=== PATIENT | male | born 1955 | race Caucasian/White ===

== ENCOUNTER 2023-01-19 12:56 | Outpatient (CLI) | payer MEDICARE, BC | END 2023-01-19 12:57 | disposition home or self-care (01) | LOC: LABBT 12:56 | PROVIDERS: ATTEND Orthopaedic Surgery | DX: Z01.818 Encounter for other preprocedural examination (principal); M17.12 Unilateral primary osteoarthritis, left knee; J98.4 Other disorders of lung; R59.0 Localized enlarged lymph nodes; Q25.46 Tortuous aortic arch | CPT/HCPCS: 71046; 80048; 81001; 85025; 85610; 86850; 86900; 86901; 87081; 93005; 93010 ==

== ENCOUNTER 2023-01-24 06:49 | Observation (INO) | payer MEDICARE, BC ==
[2023-01-19 13:10] VITALS: BMI 31.5
[2023-01-19 15:10] LABS: #Basophils 0.1 10x3/uL (0.0-0.2); #Eosinphils 0.2 10x3/uL (0.0-0.5); #Monocytes 0.8 10x3/uL (0.0-1.1); #Neutrophils 5.6 10x3/uL (1.5-8.4); %Lymphocytes 26.4 % (18.0-47.0); %Monocytes 8.4 % (0.0-10.0); %Neutrophils 61.8 % (40.0-75.0); Hemoglobin 17.2 g/dL (13.5-17.5); Mean Corpuscular HGB CONC 33.7 g/dL (32.0-36.0); Mean Corpuscular Hemoglobin 31.8 pg (27.0-33.0); Mean Corpuscular Volume 94.3 fl (81.2-95.1); Mean Platelet Volume 10.6 fl (7.4-10.4); Platelet Count 234 10x3/uL (150-450); RBC Distribution Width 12.8 % (11.5-14.5); Red Blood Cell (RBC) Count 5.41 10x6/uL (4.32-5.72); White Blood Cell (WBC) Count 9.1 10x3/uL (3.5-10.5)
[2023-01-19 15:11] LABS: Anion Gap 14 mmol/L (10-20); BUN (Urea Nitrogen) 12 mg/dL (8.4-25.7); Bilirubin Neg (Negative); Blood, Urine 10 (Negative); Calc. Creatinine Clearance 0 mL/min (70-130); Calcium 8.9 mg/dL (7.8-10.44); Carbon Dioxide 26 mmol/L (23-31); Chloride 105 mmol/L (98-107); Clarity Clear (Clear); Estimated GFR 102; Glucose 105 mg/dL (80-115); Glucose, Urine (Dipstick) Normal (Negative); Ketone, Urine Negative (Negative); Leukocyte Negative (Negative); Nitrite Negative (Negative); Potassium 4.4 mmol/L (3.5-5.1); Protein, Urine (Dipstick) 15 mg/dl (Neg-Trace); Sodium 141 mmol/L (136-145); Specific Gravity, Urine 1.005 (1.005-1.030); Urobilinogen Normal mg/dL (Less than 2); pH, Urine 6.5 (5.0-9.0)
[2023-01-19 15:15] LABS: Prothrombin Time 10.8 sec (9.5-12.1)
[2023-01-19 15:32] LABS: Bacteria/HPF None Seen HPF (None Seen); RBC/HPF None Seen HPF (0-3); Squamous Epithelial None Seen HPF (0-3); WBC/HPF None Seen HPF (0-3)
[2023-01-24] MEDS ORDERED: Midazolam HCl 2 mg/2 ml Vial ONE (07:23)
[2023-01-24] MEDS ORDERED: Bupivacaine PF 0.5% 30 ML VIAL ONE ×2 (07:23→09:20)
[2023-01-24] MEDS ORDERED: fentaNYL 50 mcg/mL 1 mL Vial ONE ×3 (07:23→11:58)
[2023-01-24] MEDS ORDERED: Tranexamic Acid 1,000 MG/10 ML VIAL ONE ×2 (08:22→11:58)
[2023-01-24] MEDS ORDERED: Vancomycin (BATCH) 1.5 GM/300 ML BAG ONE (08:22)
[2023-01-24] MEDS ORDERED: Sodium Chloride 0.9% 100 ML ONE ×2 (08:22→09:30)
[2023-01-24] MEDS ORDERED: Bupivacaine HCl 0.5%/Epinephrine 1:200,000/PF 30 ml Vial ONE (08:50)
[2023-01-24] MEDS ORDERED: fentaNYL 50 mcg/mL 1 mL Vial SLOW IVP PRN (09:02)
[2023-01-24] MEDS ORDERED: Promethazine HCl 25 MG/ML VIAL IM PRN ×3 (09:15→10:23)
[2023-01-24] MEDS ORDERED: Ondansetron PF 4 MG/2 ML Vial IVP PRN ×2 (09:15→10:06)
[2023-01-24] MEDS ORDERED: Zolpidem Tartrate 5 MG TAB PO PRN ×2 (09:15→10:06)
[2023-01-24] MEDS ORDERED: traMADol HCl 50 MG TAB PO PRN ×2 (09:15)
[2023-01-24] MEDS ORDERED: HYDROcodone/Acetaminophen 10/325 mg Tablet PO PRN ×2 (09:15)
[2023-01-24] MEDS ORDERED: Ropivacaine 0.2% 550 ML 550 ML NERVE BLCK SCH (09:15)
[2023-01-24] MEDS ORDERED: CEFAZOLIN 2 GM VIAL ONE (09:29)
[2023-01-24] MEDS ORDERED: fentaNYL PF 100 MCG/2 ML SYRINGE ONE (09:29)
[2023-01-24] MEDS ORDERED: PROPOFOL 20 ML ONE (09:29)
[2023-01-24] MEDS ORDERED: Lidocaine 1% PF 5 ML VIAL ONE ×2 (09:30→09:56)
[2023-01-24] MEDS ORDERED: Ketorolac Tromethamine 30 MG/ML VIAL ONE ×2 (09:56→10:23)
[2023-01-24] MEDS ORDERED: PROPOFOL 200 MG/20 ML VIAL ONE (09:56)
[2023-01-24] MEDS ORDERED: Dexamethasone 20 MG/5 ML VIAL ONE (09:56)
[2023-01-24] MEDS ORDERED: ePHEDrine Sulfate 50 MG/10 ML VIAL ONE ×2 (09:56→11:16)
[2023-01-24] MEDS ORDERED: PHENYLEPHRINE-NS 100 MCG/ML 10 ML SYRINGE ONE ×2 (09:56→10:04)
[2023-01-24] MEDS ORDERED: Ondansetron PF 4 MG/2 ML Vial ONE ×2 (09:56→10:23)
[2023-01-24] MEDS ORDERED: Acetaminophen 325 MG TAB PO PRN (10:06)
[2023-01-24] MEDS ORDERED: diphenhydrAMINE 25 MG CAP PO PRN (10:06)
[2023-01-24] MEDS ORDERED: Tranexamic Acid 1,000 MG in Sodium Chloride 0.9% 100 ML IVPB SCH (10:15)
[2023-01-24] MEDS ORDERED: Dexamethasone 4 mg/ml Vial ONE (10:23)
[2023-01-24] MEDS ORDERED: Meperidine HCl/PF 25 MG/ML VIAL SLOW IVP PRN (10:23)
[2023-01-24] MEDS ORDERED: Ondansetron HCl/PF 4 MG/2 ML Vial IVP PRN (10:23)
[2023-01-24] MEDS ORDERED: HYDROmorphone 2 MG/ML VIAL SLOW IVP PRN (10:23)
[2023-01-24] MEDS: Ketorolac Tromethamine 30 MG/ML VIAL IVP SCH ×2 (12:17→17:25)
[2023-01-24] MEDS: CEFAZOLIN 2 GM in Sodium Chloride 0.9% 100 ML IVPB SCH ×2 (14:34→22:59)
[2023-01-24] MEDS: Sodium Chloride 0.9% 1,000 ML IV SCH ×2 (14:35→21:06)
[2023-01-24] MEDS ORDERED: Vancomycin 1.5 GM in Sodium Chloride 0.9% 250 ML 300 ML IVPB SCH (20:00)
[2023-01-24] MEDS ORDERED: Vancomycin (BATCH) 1.5 GM in Premix 1 BAG IVPB SCH (20:00)
[2023-01-24] MEDS ORDERED: DIPYRIDAMOLE 25 MG PO SCH (21:00)
[2023-01-24] MEDS ORDERED: Pravastatin Sodium 40 MG TAB PO SCH (21:00)
[2023-01-24] MEDS ORDERED: Atorvastatin Calcium 10 MG TAB PO SCH (21:00)
[2023-01-24] MEDS ORDERED: DIPYRIDAMOLE 25 MG DT SCH (21:00)
[2023-01-24] MEDS: Aspirin 81 mg Enteric Coated Tablet PO SCH (21:04)
[2023-01-24] MEDS: Senokot S 8.6-50 MG TAB PO SCH (21:04)
[2023-01-24] MEDS: Ferrous Gluconate 324 MG TAB PO SCH (21:05)
[2023-01-25] MEDS: Ketorolac Tromethamine 30 MG/ML VIAL IVP SCH ×3 (00:23→11:30)
[2023-01-25] MEDS: Sodium Chloride 0.9% 1,000 ML IV SCH (05:37)
[2023-01-25 05:38] LABS: Hematocrit 38.8 % (42.0-52.0); Mean Corpuscular HGB CONC 33.5 g/dL (32.0-36.0); Mean Corpuscular Hemoglobin 31.8 pg (27.0-31.0); Mean Corpuscular Volume 94.9 fl (78.0-98.0); Mean Platelet Volume 10.2 fL (7.4-10.4); Platelet Count 175 10x3/uL (130-400); RBC Distribution Width 12.8 % (11.5-14.5); Red Blood Cell (RBC) Count 4.09 mill/uL (4.70-6.10); White Blood Cell (WBC) Count 14.8 10x3/uL (4.8-10.8)
[2023-01-25] MEDS: Aspirin 81 mg Enteric Coated Tablet PO SCH (08:30)
[2023-01-25] MEDS: Ferrous Gluconate 324 MG TAB PO SCH (08:30)
[2023-01-25] MEDS: Senokot S 8.6-50 MG TAB PO SCH (08:31)
[2023-01-25] MEDS ORDERED: Multivitamin W/ Minerals 1 TAB PO SCH (09:00)
[2023-01-25] MEDS ORDERED: Valsartan 80 MG TAB PO SCH (09:00)
[2023-01-25] MEDS ORDERED: Non-Formulary Item 1 EACH (Cyanocobalamin (Vitamin B-12) [Vitamin B-12] 500 MCG Tablet) PO SCH (09:00)
[2023-01-25] MEDS ORDERED: Cholecalciferol 1,000 UNITS (25 MCG) TAB PO SCH (09:00)
[2023-01-25] MEDS ORDERED: Meloxicam 15 MG TAB PO SCH (09:00)
[2023-01-25] MEDS ORDERED: Non-Formulary Item 1 EACH (Valsartan [Valsartan] 160 MG Tablet) PO SCH (09:00)
[2023-01-25] MEDS ORDERED: Non-Formulary Item 1 EACH (Cholecalciferol (Vitamin D3) [Vitamin D3] 125 MCG Capsule) PO SCH (09:00)
[2023-01-25] MEDS ORDERED: Aspirin Chewable 81 MG TAB PO SCH (09:00)
[2023-01-25] MEDS ORDERED: Cyanocobalamin (Vitamin B-12) 1,000 MCG TAB PO SCH (09:00)
[2023-01-25 16:24] VITALS: BP 131/76; TEMP 98
== END 2023-01-25 13:30 | disposition home or self-care (01) ==
LOC: SDC 06:49 → SJJU 10:11
PROVIDERS: ADMIT Orthopaedic Surgery; ATTEND Orthopaedic Surgery
PROC: 0SRD0JZ Replacement of Left Knee Joint with Synthetic Substitute, Open Approach (ICD-10-PCS; principal; 2023-01-24)
DX: M17.12 Unilateral primary osteoarthritis, left knee (principal); F17.200 Nicotine dependence, unspecified, uncomplicated; E78.00 Pure hypercholesterolemia, unspecified; H40.9 Unspecified glaucoma; Z90.49 Acquired absence of other specified parts of digestive tract; Z98.890 Other specified postprocedural states; Z79.899 Other long term (current) drug therapy
CPT/HCPCS: 27447; 80048; 81001; 85025; 85027; 85610; 86850; 86900; 86901; 87081; 97110; 97116; 97530 ×2; A4306; C1713; C1776; J3010; J3370; 36415; J1100; J1885; J2250; J2405; J2704; J2795; J3490; S0020